=== PATIENT | male | born 1970 | race African-American/Black ===

== ENCOUNTER 2019-01-09 04:35 | Inpatient (IN) | payer OTHER ==
[~2019-01-09] VITALS: Ht 182.9 cm; Wt 78.5 kg
[2019-01-09] MEDS ORDERED: SODIUM CHLORIDE 0.9% 1,000 ML IV ONE (06:11)
[2019-01-09 06:29] LABS: BASOPHILS % 0.6 % (0.0-2.0); EOSINOPHILS % 1.1 % (0.0-5.0); HEMATOCRIT. 50.5 % (42.0-52.0); HEMOGLOBIN. 17.5 g/dL (14.0-18.0); LYMPHOCYTES % 17.2 % (20.0-50.0); MEAN CORPUSCULAR HEMOGLOBIN 34.6 pg (28.0-32.0); MEAN CORPUSCULAR VOLUME 100.1 fL (80.0-94.0); MEAN PLATELET VOLUME 8.7 fl (7.4-10.4); NEUTROPHILS % 73.1 % (40.0-76.0); PLATELET 211 x1000/uL (130-400); RED BLOOD CELL COUNT 5.05 mill/uL (4.7-6.1); RED CELL DISTRIBUTION WIDTH 12.7 % (11.6-14.6)
[2019-01-09 06:33] LABS: CHLORIDE 100 mEq/L (98-107)
[2019-01-09 06:34] LABS: PROTHROMBIN TIME 10.1 sec (9.6-11.0)
[2019-01-09 06:37] LABS: ETHANOL BLOOD < 10 mg/dL
[2019-01-09 06:40] LABS: LDL CHOLESTEROL 100 mg/dL (5-100)
[2019-01-09 06:42] LABS: CREATINE KINASE 106 IU/L (39-308)
[2019-01-09 08:00] VITALS: BP 168/103
[2019-01-09 08:10] LABS: CLARITY URINE CLEAR (CLEAR); COLOR URINE YELLOW (YELLOW); KETONES URINE 2+ (NEGATIVE); LEUKOCYTE ESTERASE URINE NEGATIVE (NEGATIVE); NITRITE URINE NEGATIVE (NEGATIVE); OCCULT BLOOD URINE NEGATIVE (NEGATIVE); PH URINE 5.5 (4.5-8.0); PROTEIN URINE NEGATIVE (NEGATIVE); SPECIFIC GRAVITY URINE 1.008 (1.005-1.030); UROBILINOGEN URINE 0.2 E.U./dL (0.2-1.0)
[2019-01-09 08:40] LABS: *BARBITURATES SCREEN URINE NEGATIVE (NEGATIVE); *BENZODIAZEPINES SCREEN URINE NEGATIVE (NEGATIVE)
[2019-01-09 08:41] LABS: *COCAINE SCREEN URINE NEGATIVE (NEGATIVE); CANNABINOID URINE SCREEN NEGATIVE (NEGATIVE); METHADONE URINE SCREEN NEGATIVE (NEGATIVE); OPIATES URINE SCREEN NEGATIVE (NEGATIVE); PHENCYCLIDINE URINE SCREEN NEGATIVE (NEGATIVE)
[2019-01-09 08:43] LABS: *AMPHETAMINES SCREEN URINE NEGATIVE (NEGATIVE)
[2019-01-09] MEDS ORDERED: ONDANSETRON HCL 4MG/2ML INJ IV ONE (09:00)
[2019-01-09] MEDS ORDERED: ONDANSETRON HCL 4MG/2ML INJ IV PRN (10:30)
[2019-01-09] MEDS ORDERED: MAGNESIUM/ALUMINUM HYDROXIDE/SIMETHICONE 30ML UDC PO PRN (10:30)
[2019-01-09] MEDS ORDERED: HYDROCODONE/ACETAMINOPHEN 5/325MG TABLET PO PRN (10:30)
[2019-01-09] MEDS ORDERED: LORAZEPAM 2MG/ML CPJ IV PRN (10:30)
[2019-01-09] MEDS ORDERED: IPRATROPIUM/ALBUTEROL 0.5-3(2.5)MG/3ML NEB NEB PRN (10:30)
[2019-01-09] MEDS ORDERED: NA PHOS,M-B/NA PHOS,DI-BA ENEMA 118ML PR PRN (10:30)
[2019-01-09] MEDS ORDERED: ACETAMINOPHEN 325MG TABLET PO PRN (10:30)
[2019-01-09] MEDS ORDERED: CLONIDINE 0.1MG TABLET PO PRN (10:30)
[2019-01-09] MEDS ORDERED: DOCUSATE SODIUM 100MG CAPSULE PO PRN (10:30)
[2019-01-09] MEDS ORDERED: GUAIFENESIN 200MG/10ML SUGAR FREE UDC PO PRN (10:30)
[2019-01-09] MEDS ORDERED: ENOXAPARIN 40MG/0.4ML SYR SUBCUT SCH (10:30)
[2019-01-09 11:00] VITALS: BP 168/103
[2019-01-09] MEDS: MORPHINE SULFATE 4 MG/ML CPJ (NOT FOR IM USE) IV PRN ×3 (11:26→21:59)
[2019-01-09 12:00] VITALS: BP 154/104
[2019-01-09] MEDS: ASPIRIN 81MG EC TABLET PO SCH (12:28)
[2019-01-09 16:00] VITALS: BP 161/105
[2019-01-09 16:30] LABS: CHLORIDE 103 mEq/L (98-107)
[2019-01-09] MEDS: AMLODIPINE 10MG TABLET PO SCH (17:32)
[2019-01-09] MEDS: CLONIDINE 0.3MG TABLET PO PRN (17:32)
[2019-01-09 20:00] VITALS: BP 128/96
[2019-01-10 00:38] VITALS: BP 119/79
[2019-01-10 04:00] VITALS: BP 140/94
[2019-01-10] MEDS: CLONIDINE 0.3MG TABLET PO PRN ×2 (04:22→12:36)
[2019-01-10 05:59] LABS: BASOPHILS % 0.3 % (0.0-2.0); EOSINOPHILS % 1.3 % (0.0-5.0); HEMATOCRIT. 50.7 % (42.0-52.0); HEMOGLOBIN. 17.4 g/dL (14.0-18.0); LYMPHOCYTES % 15.8 % (20.0-50.0); MEAN CORPUSCULAR HEMOGLOBIN 34.3 pg (28.0-32.0); MEAN PLATELET VOLUME 8.9 fl (7.4-10.4); NEUTROPHILS % 74.6 % (40.0-76.0); PLATELET 212 x1000/uL (130-400); RED BLOOD CELL COUNT 5.07 mill/uL (4.7-6.1); RED CELL DISTRIBUTION WIDTH 12.9 % (11.6-14.6)
[2019-01-10 06:08] LABS: CHLORIDE 101 mEq/L (98-107)
[2019-01-10 06:24] LABS: LDL CHOLESTEROL 101 mg/dL (5-100)
[2019-01-10 06:25] LABS: HDL CHOLESTEROL 75 mg/dL (40-59); T4 FREE 0.88 ng/dL (0.76-1.46)
[2019-01-10 08:00] VITALS: BP 139/90
[2019-01-10] MEDS: ASPIRIN 81MG EC TABLET PO SCH (08:46)
[2019-01-10] MEDS: AMLODIPINE 10MG TABLET PO SCH (08:47)
[2019-01-10] MEDS: ENOXAPARIN 40MG/0.4ML SYR SUBCUT SCH (08:48)
[2019-01-10] MEDS: MORPHINE SULFATE 4 MG/ML CPJ (NOT FOR IM USE) IV PRN ×2 (08:49→20:02)
[2019-01-10 12:00] VITALS: BP 133/95
[2019-01-10] MEDS: DEXAMETHASONE 4MG/ML 1ML VIAL IV SCH ×3 (12:36→23:51)
[2019-01-10] MEDS ORDERED: GADOBENATE DIMEGLUMINE 529 MG/ML 10ML IV ONE (13:32)
[2019-01-10 16:00] VITALS: BP 129/80
[2019-01-10 20:00] VITALS: BP 136/92
[2019-01-11] VITALS: BP 135/94
[2019-01-11 04:00] VITALS: BP 133/78
[2019-01-11] MEDS: DEXAMETHASONE 4MG/ML 1ML VIAL IV SCH ×3 (05:18→17:06)
[2019-01-11] MEDS: MORPHINE SULFATE 4 MG/ML CPJ (NOT FOR IM USE) IV PRN ×3 (05:19→21:37)
[2019-01-11 08:00] VITALS: BP 143/102
[2019-01-11] MEDS: ASPIRIN 81MG EC TABLET PO SCH (08:24)
[2019-01-11] MEDS: ENOXAPARIN 40MG/0.4ML SYR SUBCUT SCH (08:24)
[2019-01-11] MEDS: AMLODIPINE 10MG TABLET PO SCH (08:24)
[2019-01-11 12:00] VITALS: BP 154/103
[2019-01-11] MEDS: CLONIDINE 0.3MG TABLET PO PRN (12:29)
[2019-01-11 16:00] VITALS: BP 125/88
[2019-01-11 20:00] VITALS: BP 135/98
[2019-01-12] VITALS: BP 140/98
[2019-01-12] MEDS: DEXAMETHASONE 4MG/ML 1ML VIAL IV SCH ×4 (00:05→17:31)
[2019-01-12 04:00] VITALS: BP 135/94
[2019-01-12] MEDS: MORPHINE SULFATE 4 MG/ML CPJ (NOT FOR IM USE) IV PRN ×3 (04:31→17:40)
[2019-01-12 08:00] VITALS: BP 155/103
[2019-01-12] MEDS: ENOXAPARIN 40MG/0.4ML SYR SUBCUT SCH (08:43)
[2019-01-12] MEDS: AMLODIPINE 10MG TABLET PO SCH (08:45)
[2019-01-12 12:00] VITALS: BP 157/97
[2019-01-12] MEDS ORDERED: SODIUM BICARBONATE 4% (2.4MEQ) 5ML VIAL IV ONE (13:04)
[2019-01-12] MEDS ORDERED: LIDOCAINE HCL 1% 20ML VIAL (Pyxis) INJ ONE (13:05)
[2019-01-12 16:00] VITALS: BP 166/100
[2019-01-12 16:07] LABS: GLUCOSE CSF 83 mg/dL (41-75)
[2019-01-12] MEDS: CLONIDINE 0.3MG TABLET PO PRN (17:31)
[2019-01-12 20:00] VITALS: BP 143/93
[2019-01-13] VITALS (24 sets, daily range): BP systolic 127–165; BP diastolic 70–118
[2019-01-13] MEDS: DEXAMETHASONE 4MG/ML 1ML VIAL IV SCH ×3 (00:14→09:38)
[2019-01-13] MEDS: MORPHINE SULFATE 4 MG/ML CPJ (NOT FOR IM USE) IV PRN ×3 (00:15→22:07)
[2019-01-13 05:40] LABS: HEMATOCRIT. 55.4 % (42.0-52.0); HEMOGLOBIN. 18.9 g/dL (14.0-18.0); MEAN CORPUSCULAR HEMOGLOBIN 34.1 pg (28.0-32.0); MEAN CORPUSCULAR VOLUME 100.2 fL (80.0-94.0); MEAN PLATELET VOLUME 9.2 fl (7.4-10.4); PLATELET 227 x1000/uL (130-400); RED BLOOD CELL COUNT 5.53 mill/uL (4.7-6.1); RED CELL DISTRIBUTION WIDTH 12.9 % (11.6-14.6)
[2019-01-13 05:52] LABS: CHLORIDE 94 mEq/L (98-107)
[2019-01-13] MEDS: CLONIDINE 0.3MG TABLET PO PRN (06:24)
[2019-01-13 08:34] LABS: PLATELET ESTIMATE NORMAL
[2019-01-13] MEDS: ENOXAPARIN 40MG/0.4ML SYR SUBCUT SCH (09:37)
[2019-01-13] MEDS: AMLODIPINE 10MG TABLET PO SCH (09:38)
[2019-01-13 14:44] LABS: SODIUM URINE RANDOM 34 mEq/L
[2019-01-13] MEDS ORDERED: MORPHINE SULFATE 4 MG/ML CPJ (NOT FOR IM USE) IV PRN (18:30)
[2019-01-13] MEDS: DIPHENHYDRAMINE 50MG/ML VIAL IV PRN ×2 (22:06→22:10)
[2019-01-14] VITALS (19 sets, daily range): BP systolic 97–169; BP diastolic 86–112
[2019-01-14] MEDS ORDERED: DEXT 5%/0.45% NACL 1000ML 1,000 ML IV SCH (02:00)
[2019-01-14] MEDS: MORPHINE SULFATE 4 MG/ML CPJ (NOT FOR IM USE) IV PRN ×4 (02:41→17:36)
[2019-01-14] MEDS: DEXAMETHASONE 4MG/ML 1ML VIAL IV SCH (08:40)
[2019-01-14] MEDS: AMLODIPINE 10MG TABLET PO SCH ×2 (08:41→09:00)
[2019-01-14] MEDS ORDERED: SODIUM CHLORIDE 0.9% 1,000 ML IV SCH (10:00)
[2019-01-14 10:07] LABS: HEMATOCRIT. 56.2 % (42.0-52.0); HEMOGLOBIN. 18.8 g/dL (14.0-18.0); MEAN CORPUSCULAR HEMOGLOBIN 33.6 pg (28.0-32.0); MEAN CORPUSCULAR VOLUME 100.4 fL (80.0-94.0); MEAN PLATELET VOLUME 10.3 fl (7.4-10.4); PLATELET 243 x1000/uL (130-400); RED BLOOD CELL COUNT 5.59 mill/uL (4.7-6.1); RED CELL DISTRIBUTION WIDTH 12.6 % (11.6-14.6)
[2019-01-14] MEDS: ENOXAPARIN 40MG/0.4ML SYR SUBCUT SCH (10:21)
[2019-01-14 10:26] LABS: PLATELET ESTIMATE NORMAL
[2019-01-14] MEDS ORDERED: HYDRALAZINE 20MG/ML VIAL IV PRN (10:30)
[2019-01-14 11:25] LABS: CHLORIDE 95 mEq/L (98-107)
[2019-01-16 13:16] LABS: DRVVT LA 35.5 sec (0.0-47.0); LUPUS ANTICOAG INTERPRETATION Comment: (.); PTT-LA 39.1 sec (0.0-51.9)
[2019-01-17 17:16] LABS: ANTI-MYELOPEROXIDASE AB < 9.0 U/mL (0.0-9.0); ANTI-PROTEINASE 3 ABS < 3.5 U/mL (0.0-3.5)
[2019-01-17 19:11] LABS: ANTI-NUCLEAR ANTIBODIES DIRECT Negative (Negative)
[2019-01-21 13:16] LABS: ATYPICAL P-ANCA <1:20 titer (Neg:<1:20); CYTOPLASMIC C-ANCA <1:20 titer (Neg:<1:20); PERINUCLEAR P-ANCA <1:20 titer (Neg:<1:20)
== END 2019-01-14 18:04 | disposition short-term general hospital (02) | DRG 94 ==
LOC: ER 04:35 → 5WST 08:44 → EDBEDREQ 09:03 → ENRESERV 09:17 → CVICU 01-13 01:40
PROVIDERS: ADMIT Internal Medicine; ATTEND Internal Medicine
PROC: 009U3ZX Drainage of Spinal Canal, Percutaneous Approach, Diagnostic (ICD-10-PCS; principal; 2019-01-12)
PROC: B01B1ZZ Fluoroscopy of Spinal Cord using Low Osmolar Contrast (ICD-10-PCS; 2019-01-12)
DX: G61.0 Guillain-Barre syndrome (principal); G82.50 Quadriplegia, unspecified; E87.1 Hypo-osmolality and hyponatremia; M48.00 Spinal stenosis, site unspecified; M50.223 Other cervical disc displacement at C6-C7 level; M48.02 Spinal stenosis, cervical region; R20.2 Paresthesia of skin; E86.0 Dehydration; D64.9 Anemia, unspecified; R13.10 Dysphagia, unspecified; F10.10 Alcohol abuse, uncomplicated; F17.210 Nicotine dependence, cigarettes, uncomplicated; R26.9 Unspecified abnormalities of gait and mobility; G70.00 Myasthenia gravis without (acute) exacerbation
CPT/HCPCS: 36415; 62270; 70553; 71045; 72100; 72141; 72142; 72146; 72147; 72148; 77003; 80048; 80061; 80305; 80320; 81003; 82550; 82945; 83520; 83721; 83735; 83880; 83930; 83935; 84156; 84157; 84295; 84300; 84439; 84443; 84484; 85613; 85651; 85732; 86038; 86140; 86256; 87070; 87899; 92610; 93005; 96374; 97110; 97162; 97166; 97530; 99285; A9577; J1100; J1200; J1650; J2270; J2405; J3490; J7030; L0172; A4315; G0480